=== PATIENT | male | born 1955 | race Caucasian/White ===

== ENCOUNTER 2020-08-12 01:47 | Inpatient (IN) | payer MEDICARE, OTHER ==
[~2020-08-12] VITALS: Ht 170.2 cm; Wt 80.7 kg
--- NOTE | 2020-08-12 01:52 | NUR ---
PT AAOX4. BIBEMS C/O WORSENING SOB, GENERALIZED WEAKNESS X3 WEEKS. NOTED PT COVERED IN FECES. UPON ASSESSMENT STATED HE HAS BEEN HAVING DIARRHEA X3 DAYS. PT PLACED IN BED 8 ON MONITOR AND PULSE OX. PT NOTED MD BERNY AT BEDSIDE FOR EVAL. AWAITING ORDERS.
[2020-08-12] MEDS ORDERED: ACETAMINOPHEN 325 MG TABLET ONE ×2 (02:25→20:52)
[2020-08-12] MEDS ORDERED: ONDANSETRON HCL/PF 4 MG/2 ML VIAL ONE (02:25)
[2020-08-12] MEDS ORDERED: ONDANSETRON HCL/PF 4 MG/2 ML VIAL IVP ONE (02:30)
[2020-08-12] MEDS ORDERED: ACETAMINOPHEN 325 MG TABLET PO ONE (02:30)
[2020-08-12] MEDS ORDERED: IV NS 0.9% 1,000 ML BAG IV ONE (02:30)
--- NOTE | 2020-08-12 02:30 | NUR ---
BRIAID SWABBED, SENT TO LAB.
[2020-08-12 02:39] LABS: BASOPHILS % (AUTO) 0.2 % (0.0-2.0); EOSINOPHILS % (AUTO) 0.4 % (0.0-6.0); HEMATOCRIT 38 % (39-51); HEMOGLOBIN 12.7 g/dL (13.5-17.5); LYMPHOCYTES # (AUTO) 0.5 /CMM (0.8-4.8); LYMPHOCYTES % (AUTO) 3.7 % (20.0-44.0); MEAN CORPUSCULAR HGB CONC 34 g/dl (31.0-36.0); MEAN CORPUSCULAR VOLUME 92 fL (80-96); MONOCYTES # (AUTO) 0.2 /CMM (0.1-1.30); MONOCYTES % (AUTO) 1.6 % (2.0-12.0); NEUTROPHILS # (AUTO) 11.6 /CMM (1.8-8.9); NEUTROPHILS % (AUTO) 94.1 % (43.0-81.0); PLATELET COUNT (AUTO) 259 /CMM (150-450); RED BLOOD CELL COUNT(AUTO) 4.08 MIL/uL (4.5-6.0); WHITE BLOOD COUNT (AUTO) 12.3 K/uL (4.3-11.0)
[2020-08-12 02:48] LABS: CALCIUM, SERUM 8.4 mg/dL (8.5-10.1); CARBON DIOXIDE 28 mmol/L (21-32); CHLORIDE 96 mmol/L (98-107); CREATININE 1.4 mg/dL (0.6-1.3); GLUCOSE 146 mg/dL (74-106); POTASSIUM 3.8 mmol/L (3.5-5.1); SODIUM SERUM 133 mmol/L (136-145); UREA NITROGEN, BLOOD 37 mg/dL (7-18)
--- NOTE | 2020-08-12 02:56 | NUR ---
Call from lab, rapid covid positive,
[2020-08-12 03:01] LABS: ALANINE AMINOTRANSFERASE 63 U/L (12-78); ALBUMIN 2.2 g/dL (3.4-5.0); ALKALINE PHOSPHATASE 138 U/L (46-116); ASPARTATE AMINOTRANSFERASE 59 U/L (15-37); B-TYPE NATRIURETIC PEPTIDE 1265 PG/ML (0-125); BILIRUBIN,DIRECT 0.4 mg/dL (0.0-0.2); BILIRUBIN,TOTAL 0.9 mg/dL (0.2-1.0); TOTAL PROTEIN, SERUM 7.5 g/dL (6.4-8.2)
[2020-08-12] MEDS ORDERED: AZITHROMYCIN 500 MG in IV D5W 250 ML IV ONE (03:30)
[2020-08-12] MEDS ORDERED: CEFTRIAXONE 1GM BAG (ER ONLY) 1 GM/50 ML PIGGYBACK IV ONE (03:30)
[2020-08-12] MEDS ORDERED: CEFTRIAXONE 1GM BAG (ER ONLY) 50 ML IV ONE (03:53)
[2020-08-12] MEDS ORDERED: AZITHROMYCIN 500 MG VIAL ONE (03:54)
[2020-08-12] MEDS ORDERED: ALBUTEROL SULFATE 8 GM HFA.AER.AD IH PRN (05:30)
[2020-08-12] MEDS ORDERED: ONDANSETRON HCL/PF 4 MG/2 ML VIAL IVP PRN (05:30)
--- NOTE | 2020-08-12 07:05 | NUR ---
PT PLACED ON NON REBREATHER DUE TO PT SAT 88% ON SIMPLE MASK.
--- NOTE | 2020-08-12 07:16 | NUR ---
ENDORSEMENT RECEIVED FROM YULY MORATAYA FOR NEGRO
--- NOTE | 2020-08-12 09:01 | NUR ---
PATIENT IN BED, ASLEEP, EASILY AROUSABLE BY VOICE. HOOKED TO MONITOR, VSS. WILL CONTINUE TO MONITOR ACCORDINGLY
[2020-08-12] MEDS: DEXAMETHASONE SOD PHOSPHATE 4 MG/ML VIAL IV SCH (10:08)
--- NOTE | 2020-08-12 11:05 | NUR ---
PATIENT IN BED, ASLEEP, EASILY AROUSABLE BY VOICE. HOOKED TO MONITOR, VSS. WILL CONTINUE TO MONITOR ACCORDINGLY
[2020-08-12 11:46] LABS: C-REACTIVE PROTEIN 38.2 mg/dL (0.0-0.9)
--- NOTE | 2020-08-12 13:06 | NUR ---
PATIENT IN BED, ASLEEP, EASILY AROUSABLE BY VOICE. HOOKED TO MONITOR, VSS. WILL CONTINUE TO MONITOR ACCORDINGLY
[2020-08-12] MEDS ORDERED: REMDESIVIR (CHARGED) 200 MG, *LOADING DOSE 1 EA in IV NS 0.9% 210 ML IV ONE (14:00)
--- NOTE | 2020-08-12 15:01 | NUR ---
PATIENT IN BED, ASLEEP, EASILY AROUSABLE BY VOICE. HOOKED TO MONITOR, VSS. WILL CONTINUE TO MONITOR ACCORDINGLY
--- NOTE | 2020-08-12 17:06 | NUR ---
PATIENT IN BED, ASLEEP, EASILY AROUSABLE BY VOICE. HOOKED TO MONITOR, VSS. WILL CONTINUE TO MONITOR ACCORDINGLY
[2020-08-12] MEDS: IPRATROPIUM/ALBUTEROL INHALER IH SCH (18:00)
--- NOTE | 2020-08-12 18:16 | NUR ---
PT RESTING COMFORTABLY. VSS.
--- NOTE | 2020-08-12 19:19 | NUR ---
PATIENT IN BED, ASLEEP, EASILY AROUSABLE BY VOICE. HOOKED TO MONITOR, VSS. WILL CONTINUE TO MONITOR ACCORDINGLY
--- NOTE | 2020-08-12 19:34 | NUR ---
ENDORSEMENT GIVEN TO YULY MORATAYA FOR NEGRO
[2020-08-12] MEDS: ACETAMINOPHEN 325 MG TABLET PO PRN (20:53)
--- NOTE | 2020-08-12 20:53 | NUR ---
TEMP 101.9, GIVEN PO TYLENOL 650
--- NOTE | 2020-08-12 20:56 | NUR ---
CALLED TO GIVE REPORT, UNAVAILABLE.
--- NOTE | 2020-08-12 21:05 | NUR ---
CALLED TO GIVE REPORT, NURSE WILL CALL BACK.
--- NOTE | 2020-08-12 21:29 | NUR ---
RECHECKED TEMP 98.8
--- NOTE | 2020-08-12 21:42 | NUR ---
REPORT GIVEN TO JONATHAN MORATAYA FOR NEGRO
--- NOTE | 2020-08-12 22:19 | NUR ---
PT TRANSFERED PER ACLS PROTOCOL
--- NOTE | 2020-08-12 22:20 | NUR ---
RECEIVED PT FROM ER VIA [facility] A/O X3 ABLE TO VERBALIZED NEEDS, ON O2 VIA NON REBREATHER 15L WITH SPO2 96% NO SIGN AND SYMPTOMS OF SOB AT THIS MOMENT, SAFELY TRANSFER TO BED FROM [facility] HOOKED TO TELE MONITOR WITH READING SINUS TACHY 100'S WITH PVC CONTROLLED, V/S CHECKED AND RECORDED, HEAD TO TOE ASSESSMENT DONE INITIAL ASSESSMENT DONE, NURSING SWALLOW TEST DONE PT IS ABLE TO DRINK WATER, PUT ON DROPLET ISOLATION FOR COVID (+) RAPID, PCR PENDING, SAFETY MEASURE INITIATED BED ON LOWEST POSITION AND LOCKED SIDE RAILS UPX2 CALL LIGHT WITHIN REACH WILL CONT TO MONITOR THE PT
[2020-08-12 22:33] VITALS: BP 97/65
[2020-08-12] MEDS: ENOXAPARIN SODIUM 40 MG/0.4 ML DISP.SYRIN SQ SCH (22:47)
[2020-08-13] VITALS: BP 120/68
[2020-08-13 04:00] VITALS: BP 112/68
[2020-08-13] MEDS: IPRATROPIUM/ALBUTEROL INHALER IH SCH ×4 (05:06→17:24)
[2020-08-13] MEDS: CEFTRIAXONE 1 G in IV D5W 50 ML IV SCH (05:06)
[2020-08-13] MEDS: AZITHROMYCIN 250 MG TABLET PO SCH (05:06)
[2020-08-13 05:38] LABS: OCCULT BLOOD STOOL POSITIVE (NEGATIVE)
[2020-08-13 06:55] LABS: BASOPHILS % (AUTO) 0.1 % (0.0-2.0); EOSINOPHILS % (AUTO) 0.1 % (0.0-6.0); HEMATOCRIT 33 % (39-51); HEMOGLOBIN 10.8 g/dL (13.5-17.5); LYMPHOCYTES # (AUTO) 0.4 /CMM (0.8-4.8); LYMPHOCYTES % (AUTO) 3.8 % (20.0-44.0); MEAN CORPUSCULAR HGB CONC 33 g/dl (31.0-36.0); MEAN CORPUSCULAR VOLUME 92 fL (80-96); MONOCYTES # (AUTO) 0.2 /CMM (0.1-1.30); MONOCYTES % (AUTO) 2.2 % (2.0-12.0); NEUTROPHILS # (AUTO) 9.4 /CMM (1.8-8.9); NEUTROPHILS % (AUTO) 93.8 % (43.0-81.0); PLATELET COUNT (AUTO) 214 /CMM (150-450); RED BLOOD CELL COUNT(AUTO) 3.55 MIL/uL (4.5-6.0)
--- NOTE | 2020-08-13 07:30 | NUR ---
RN OPENING NOTE PATIENT CURRENTLY IN BED SLEEPING, EASY TO WAKEN. ALERT/ORIENTED X3, ABLE TO MAKE NEEDS KNOWN. PATIENT CURRENTLY ON NON REBREATHER @ 15L OXYGEN THERAPY. OXYGEN SATURATION 93%, NO S/S OF DISTRESS AT THIS TIME, NO PAIN REPORTED. TELE MONITOR READING SHOWS SINUS TACHY WITH PVC/ R FA 20G IV INTACT AND PATENT, NO S/S OF INFECTION AT THIS TIME. ALL SAFETY MEASURES IN PLACE PER HOSPITAL POLICY. BED LOCKED IN LOWEST POSITION, CALL LIGHT WITHIN REACH. WILL CONTINUE TO MONITOR AND PROVIDE CARE.
--- NOTE | 2020-08-13 07:30 | NUR ---
PT ON BED ASLEEP EASY TO WAKE UP STILL ON NON REBREATHER 15L SPO2 @ 90-91 NO PAIN NOTED, ALL NEEDS ATTENDED TELE MONITOR READS SINUS TACHY WITH PVC, DROPLET ISOLATION FOR COVID MAINTAIN BED ON LOWEST POSITION AND LOCKED SIDE RAILS UP CALL LIGHT WITHIN REACH WILL ENDORSE TO AM SHIFT NURSE
[2020-08-13 07:51] LABS: ALBUMIN 1.8 g/dL (3.4-5.0); BILIRUBIN,TOTAL 0.3 mg/dL (0.2-1.0); CALCIUM, SERUM 7.8 mg/dL (8.5-10.1); CREATININE 1.4 mg/dL (0.6-1.3); MAGNESIUM 2.5 mg/dL (1.8-2.4); POTASSIUM 3.7 mmol/L (3.5-5.1); TOTAL PROTEIN, SERUM 6.7 g/dL (6.4-8.2)
[2020-08-13 08:00] VITALS: BP 109/57
[2020-08-13 08:34] LABS: THYROID STIMULATING HORMONE 0.363 uIU/mL (0.358-3.74)
[2020-08-13] MEDS: DEXAMETHASONE SOD PHOSPHATE 4 MG/ML VIAL IV SCH (09:11)
[2020-08-13 12:00] VITALS: BP 116/63
[2020-08-13] MEDS: REMDESIVIR (CHARGED) 100 MG in IV NS 0.9% 230 ML IV SCH (14:19)
[2020-08-13 16:00] VITALS: BP 103/59
--- NOTE | 2020-08-13 18:52 | NUR ---
RN CLOSING NOTE PATIENT CURRENTLY IN BED RESTING. ALERT/ORIENTED X3, ABLE TO MAKE NEEDS KNOWN. PATIENT CURRENTLY ON NON REBREATHER @ 15L OXYGEN THERAPY. OXYGEN SATURATION 91%, NO S/S OF DISTRESS AT THIS TIME, NO PAIN REPORTED. TELE MONITOR READING SHOWS SINUS TACHY WITH PVC. R FA 20G IV INTACT AND PATENT, NO S/S OF INFECTION AT THIS TIME. ALL SAFETY MEASURES IN PLACE PER HOSPITAL POLICY. BED LOCKED IN LOWEST POSITION, CALL LIGHT WITHIN REACH. WILL ENDORSE TO MANUFACTURER'S REPRESENTATIVE NURSE FOR NEGRO.
--- NOTE | 2020-08-13 19:30 | NUR ---
RN OPENING NOTE RECEIVED PATIENT IN BED RESTING ALERT ORIENTED X3 ABLE TO MAKE NEEDS KNOWN,ON NON BREATHER MASK 15L/MIN BREATHING LABORED O2:92% NON COMPLIANCES WITH MASK KEEP TAKE OUT MASK,IV SITE IS ON RIGHT FOREARM #20 INTACT PATENT HEAD OF BED ELEVATED,CALL LIGHT WITHIN REACH,BED ALARM IS ON,BED IS IN LOW POSITION AND LOCKED CONTINUE O MONITOR
[2020-08-13 20:00] VITALS: BP 124/68
[2020-08-13] MEDS: ENOXAPARIN SODIUM 40 MG/0.4 ML DISP.SYRIN SQ SCH (20:13)
[2020-08-14] VITALS (24 sets, daily range): BP systolic 124–147; BP diastolic 48–86
--- NOTE | 2020-08-14 01:00 | NUR ---
RN NOTE RECEIVED LAB RESULTS PATIENT IS COVID POSITIVE CONTINUE TO MONITOR
--- NOTE | 2020-08-14 05:00 | NUR ---
RN NOTE STARTED A NEW IV LINE ON RIGHT FOREARM #20 WITH GOOD BLOOD RETURN AND LEFT HAND #20,CONTINUE TO MONITOR.
[2020-08-14] MEDS: CEFTRIAXONE 1 G in IV D5W 50 ML IV SCH (05:14)
[2020-08-14] MEDS: AZITHROMYCIN 250 MG TABLET PO SCH (05:35)
--- NOTE | 2020-08-14 06:42 | NUR ---
RN CLOSING NOTE PATIENT REMAINS ON ALERT ORIENTED X3 VERBALLY RESPONSIVE NO 15L OXYGEN VIA NON REBREATHER MASK,O2:94% IV SITE IS ON RIGHT FOREARM INTACT PATENT,AND LEFT HAND PATEN FLUSHED,PATIENT STILL IS NON COMPLIANCE WITH MASK,ALL DUE MEDS GIVEN MD ORDERED,KEPT CLEAN AND DRY ALL THE TIME,KEPT COMFORTABLE,KEPT CALL LIGHT WITHIN REACH,ALL NEEDS MET,ENDORSE NEXT COMING SHIFT FOR CONTINUATION OF CARE
--- NOTE | 2020-08-14 07:30 | NUR ---
RN OPENING NOTE PATIENT REMAINS ON ALERT ORIENTED X0, ON 15L OXYGEN VIA NON REBREATHER MASK, O2: 89%. RT NOTIFIED. IV SITE IS ON RIGHT FOREARM INTACT PATENT, AND LEFT HAND PATEN FLUSHED,PATIENT STILL IS NON COMPLIANCE WITH MASK, ALL SAFETY MEASURES IN PLACE PER HOSPITAL POLICY. CALL LIGHT WITHIN REACH. WILL CONTINUE TO MONITOR AND PROVIDE CARE.
[2020-08-14 07:40] LABS: BASOPHILS % (AUTO) 0.1 % (0.0-2.0); EOSINOPHILS % (AUTO) 0.1 % (0.0-6.0); HEMATOCRIT 32 % (39-51); HEMOGLOBIN 10.8 g/dL (13.5-17.5); LYMPHOCYTES # (AUTO) 0.3 /CMM (0.8-4.8); LYMPHOCYTES % (AUTO) 3.3 % (20.0-44.0); MEAN CORPUSCULAR HGB CONC 34 g/dl (31.0-36.0); MEAN CORPUSCULAR VOLUME 92 fL (80-96); MONOCYTES # (AUTO) 0.2 /CMM (0.1-1.30); NEUTROPHILS # (AUTO) 8.1 /CMM (1.8-8.9); NEUTROPHILS % (AUTO) 94.5 % (43.0-81.0); PLATELET COUNT (AUTO) 227 /CMM (150-450); RED BLOOD CELL COUNT(AUTO) 3.49 MIL/uL (4.5-6.0); WHITE BLOOD COUNT (AUTO) 8.6 K/uL (4.3-11.0)
[2020-08-14 08:05] LABS: ALBUMIN 1.8 g/dL (3.4-5.0); BILIRUBIN,DIRECT 0.2 mg/dL (0.0-0.2); BILIRUBIN,TOTAL 0.3 mg/dL (0.2-1.0); POTASSIUM 4.2 mmol/L (3.5-5.1); TOTAL PROTEIN, SERUM 6.7 g/dL (6.4-8.2)
[2020-08-14] MEDS: DEXAMETHASONE SOD PHOSPHATE 4 MG/ML VIAL IV SCH (10:20)
[2020-08-14 10:24] LABS: C-REACTIVE PROTEIN 25.4 mg/dL (0.0-0.9)
[2020-08-14 11:14] LABS: ABG BASE EXCESS 2.5 mmol/L; ABG PCO2 40.1 mmHg (35.0-45.0); ABG PH 7.442 (7.350-7.450); ABG PO2 105.9 mmHg (75.0-100.0); COHb 0.1 % (0.5-1.5); MetHb 0.3 % (0.0-1.5); O2Hb 97.6 % (94.0-97.0); SITE, ABG Left Brachial; VENT MODE, BG hfnc 60L 100% +15L nrb
[2020-08-14] MEDS: IPRATROPIUM/ALBUTEROL INHALER IH SCH ×2 (12:00→18:00)
--- NOTE | 2020-08-14 12:30 | NUR ---
PATIENT SATURATING ON 15L NON REBREATER. MD AND RT NOTIFIED. HIGH FLOW OXYGEN STARTED BY RT. ORDER FOR STAT ABG RECEIVED AND ORDER TO TRANSFER TO ICU.
--- NOTE | 2020-08-14 13:00 | NUR ---
REPORT GIVEN TO RAFIA BREWER IN ICU FOR TRANSFER OF CARE.
--- NOTE | 2020-08-14 13:00 | NUR ---
RN NOTES RECEIVIED PT ON BED IN ROOM 258 ICU STAUS , PT IS ALERT/ FOLLOWS COMMANDS, SPEECH NOT CLEAR, ON HIGH FLOW O2 AT 100% AND NONREBREATHING MASK AT 15L , O2 SAT LOW 90'S , ON TELE , SR, HR IN 80'S , L FA IV AND L HAND IV SITES CLEAN, DRY AND INTACT, SR UP x3, CALL LIGHT WITHIN EASY REACH, BED LOCKED AND IN LOWEST POSITION, CONTINUE TO MONITOR .
[2020-08-14] MEDS: REMDESIVIR (CHARGED) 100 MG in IV NS 0.9% 230 ML IV SCH (15:04)
[2020-08-14] MEDS: ENOXAPARIN SODIUM 40 MG/0.4 ML DISP.SYRIN SQ SCH (16:30)
--- NOTE | 2020-08-14 18:00 | NUR ---
RN NOTES PT REMAINS IN HIGH FLOW O2 AT 100% AND NONREBREATHING MASK , O2 SAT WNL, SR UP x3, CALL LIGHT WITHIN EASY REACH , WILL ENDORSE TO BLOGS MANAGER NURSE FOR CONTINUITY OF CARE .
[2020-08-15] VITALS (44 sets, daily range): BP systolic 108–168; BP diastolic 51–119
[2020-08-15] MEDS: CEFTRIAXONE 1 G in IV D5W 50 ML IV SCH (05:00)
[2020-08-15] MEDS: AZITHROMYCIN 250 MG TABLET PO SCH (05:01)
[2020-08-15] MEDS: IPRATROPIUM/ALBUTEROL INHALER IH SCH ×4 (05:01→17:35)
[2020-08-15 05:12] LABS: BASOPHILS % (AUTO) 0.1 % (0.0-2.0); EOSINOPHILS % (AUTO) 0.3 % (0.0-6.0); HEMATOCRIT 34 % (39-51); HEMOGLOBIN 11.3 g/dL (13.5-17.5); LYMPHOCYTES # (AUTO) 0.3 /CMM (0.8-4.8); LYMPHOCYTES % (AUTO) 4.5 % (20.0-44.0); MEAN CORPUSCULAR HGB CONC 33 g/dl (31.0-36.0); MEAN CORPUSCULAR VOLUME 92 fL (80-96); MONOCYTES # (AUTO) 0.2 /CMM (0.1-1.30); MONOCYTES % (AUTO) 2.5 % (2.0-12.0); NEUTROPHILS % (AUTO) 92.6 % (43.0-81.0); PLATELET COUNT (AUTO) 233 /CMM (150-450); RED BLOOD CELL COUNT(AUTO) 3.67 MIL/uL (4.5-6.0); WHITE BLOOD COUNT (AUTO) 7.6 K/uL (4.3-11.0)
[2020-08-15 05:28] LABS: ALBUMIN 1.9 g/dL (3.4-5.0); BILIRUBIN,DIRECT 0.2 mg/dL (0.0-0.2); BILIRUBIN,TOTAL 0.4 mg/dL (0.2-1.0); CALCIUM, SERUM 8.3 mg/dL (8.5-10.1); POTASSIUM 4.5 mmol/L (3.5-5.1); TOTAL PROTEIN, SERUM 6.9 g/dL (6.4-8.2)
--- NOTE | 2020-08-15 06:29 | NUR ---
POWER CHECKER PT RCD ONE UNIT CONVALESCENT PLASMA; REMAINED ON HI FLOW 60 L 100% WELL NRB. PT SENSITIVE TO TOUCH; STARTS YELLING WHEN HE IS BEING REPOSITIONED BUT WONT VERBALIZE WHERE HIS PAIN IS. PT HAD ONE EPISODE OF REMOVING ALL OXYGEN; EDUCATED PT ON THE NEED FOR COMPLIANCE HOWEVER PT REMAINS CONFUSED.
--- NOTE | 2020-08-15 07:05 | NUR ---
RN NOTES RECEIVED PT ON HIGH FLOW , AND NONREBREATHING MASK , O2 SAT WNL, CONFUSED, FOLLOWS SIMPLE COMMAND, ON TELE SR HR IN 90'S , TODD DRINING TO GRAVITY, SR UP x3, CALL LIGHT WITHIN EASY REACH, BED LOCKED AND IN LOWEST POSITION, CONTINUE TO MONITOR .
[2020-08-15] MEDS: DEXAMETHASONE SOD PHOSPHATE 4 MG/ML VIAL IV SCH (08:34)
[2020-08-15] MEDS: ENOXAPARIN SODIUM 40 MG/0.4 ML DISP.SYRIN SQ SCH ×2 (08:35→23:04)
[2020-08-15] MEDS: ACETAMINOPHEN 325 MG TABLET PO PRN (08:36)
[2020-08-15] MEDS ORDERED: DEXTROSE 50%-WATER 50 ML DISP.SYRIN IV PRN (11:00)
[2020-08-15] MEDS: BLOOD SUGAR DIAGNOSTIC 1 EACH STRIP IN SCH ×3 (11:42→22:00)
[2020-08-15] MEDS: REMDESIVIR (CHARGED) 100 MG in IV NS 0.9% 230 ML IV SCH (14:38)
--- NOTE | 2020-08-15 18:00 | NUR ---
RN NOTES LA=2.2, MORRIS NOTIFED ,NEW ORDER GIVEN
[2020-08-15] MEDS ORDERED: IV NS 0.9% 1,000 ML IV ONE (19:00)
--- NOTE | 2020-08-15 19:00 | NUR ---
RN NOTES PT STILL ON NONREBREATHING AND HIGH FLOW O2 , O2 SAT WNL. WILL ENDORSE TO MAINTENANCE OPERATOR NURSE FOR CONTINUITY OF CARE .
[2020-08-15] MEDS ORDERED: IV NS 0.9% 500 ML IV ONE (19:30)
--- NOTE | 2020-08-15 20:00 | NUR ---
agricultural produce packer. received the pt rest on the bed. awake, confused, does not follow commands. court recording monitor showing nsr, iv rt hand 22g. hob elevated.oxygen high flow 60%, nonrebreather 100%. fc patent. hob elevated, aissatou soft wrist restraint checked andreleased, no injury or redness noted, will continue to monitor vitals.
[2020-08-16] VITALS (45 sets, daily range): BP systolic 130–186; BP diastolic 62–124
[2020-08-16 04:09] LABS: BASOPHILS % (AUTO) 0.3 % (0.0-2.0); EOSINOPHILS % (AUTO) 0.1 % (0.0-6.0); HEMATOCRIT 35 % (39-51); HEMOGLOBIN 11.7 g/dL (13.5-17.5); LYMPHOCYTES # (AUTO) 0.4 /CMM (0.8-4.8); LYMPHOCYTES % (AUTO) 3.6 % (20.0-44.0); MEAN CORPUSCULAR HGB CONC 33 g/dl (31.0-36.0); MEAN CORPUSCULAR VOLUME 93 fL (80-96); MONOCYTES # (AUTO) 0.3 /CMM (0.1-1.30); MONOCYTES % (AUTO) 2.4 % (2.0-12.0); NEUTROPHILS # (AUTO) 9.9 /CMM (1.8-8.9); NEUTROPHILS % (AUTO) 93.6 % (43.0-81.0); PLATELET COUNT (AUTO) 210 /CMM (150-450); RED BLOOD CELL COUNT(AUTO) 3.79 MIL/uL (4.5-6.0); WHITE BLOOD COUNT (AUTO) 10.5 K/uL (4.3-11.0)
[2020-08-16 04:48] LABS: ALBUMIN 1.9 g/dL (3.4-5.0); BILIRUBIN,DIRECT 0.2 mg/dL (0.0-0.2); BILIRUBIN,TOTAL 0.4 mg/dL (0.2-1.0); TOTAL PROTEIN, SERUM 7.3 g/dL (6.4-8.2)
--- NOTE | 2020-08-16 05:05 | NUR ---
floriculture teacher, am care done. aissatou soft wrist restraint checked and released. no injury or redness noted. broadcast systems engineer showing nsr, iv lt hand ns 100ml/h. hob elevated, fc patent, will continue to monitor vitals
[2020-08-16 05:17] LABS: COLOR,URINE YELLOW (YELLOW)
[2020-08-16 05:18] LABS: BILIRUBIN,URINE NEGATIVE (NEGATIVE); LEUKOCYTE ESTERASE ,URINE NEGATIVE (NEGATIVE); NITRITE, URINE NEGATIVE (NEGATIVE); PROTEIN,URINE 30 mg/dl (NEGATIVE); UGLUCOSE NEGATIVE (NEGATIVE); UROBILINOGEN,URINE 0.2 EU/dL (0.2)
[2020-08-16 05:21] LABS: BACTERIA,URINE None seen /HPF (None Seen); SQUAMOUS EPITHELIAL CELL,UR Few /HPF (None Seen); WBC,URINE 81-100 /HPF (0-3)
[2020-08-16] MEDS: CEFTRIAXONE 1 G in IV D5W 50 ML IV SCH (05:25)
[2020-08-16 05:45] LABS: CALCIUM, SERUM 8.4 mg/dL (8.5-10.1); CREATININE 0.9 mg/dL (0.6-1.3); PHOSPHORUS 2.9 mg/dL (2.5-4.9); POTASSIUM 4.5 mmol/L (3.5-5.1)
[2020-08-16] MEDS: AZITHROMYCIN 250 MG TABLET PO SCH (05:45)
[2020-08-16] MEDS: IPRATROPIUM/ALBUTEROL INHALER IH SCH ×3 (06:00→18:00)
--- NOTE | 2020-08-16 07:30 | NUR ---
RN OPENING NOTES Patient present in bed, confused, on High Flow NC, tolerating settings well, SPO2 is 99%, at this time, restless, on soft wrist restrains, trying to remove NC and Newberry cath, ST on tele-monitor 101, Newberry cath in place draining yellow urine by gravity, IV line on L FA G22. intact, patent and intact, Monitor checked, working properly, bed is locked in lowest position, HOB elevated, call light in reach, will cont to monitor closely
[2020-08-16] MEDS: BLOOD SUGAR DIAGNOSTIC 1 EACH STRIP IN SCH ×4 (08:06→21:24)
[2020-08-16] MEDS: DEXAMETHASONE SOD PHOSPHATE 4 MG/ML VIAL IV SCH (08:10)
[2020-08-16] MEDS: ENOXAPARIN SODIUM 40 MG/0.4 ML DISP.SYRIN SQ SCH ×2 (08:12→20:14)
[2020-08-16 09:30] LABS: ABG BASE EXCESS 3.1 mmol/L; ABG OXYGEN SATURATION 89.9 % (92.0-98.5); ABG PCO2 39.4 mmHg (35.0-45.0); ABG PH 7.456 (7.350-7.450); ABG PO2 56.2 mmHg (75.0-100.0); AaDO2 617.4 mmHg; COHb 0.3 % (0.5-1.5); MetHb 0.1 % (0.0-1.5); O2Hb 89.5 % (94.0-97.0); SITE, ABG Right Radial; VENT MODE, BG HFNC 60L 100%
[2020-08-16] MEDS: INSULIN REGULAR, HUMAN 100 UNIT/ML 3 ML VIAL SQ PRN ×2 (10:49→21:25)
--- NOTE | 2020-08-16 12:10 | NUR ---
WILL HOLD INSULIN DUE NPO STATUS, BLOOD SUGAR LEVEL IS 132 AT THIS TIME
--- NOTE | 2020-08-16 12:30 | NUR ---
Noted high BP, hospitalist is aware
--- NOTE | 2020-08-16 12:41 | NUR ---
RT NOTE: PATIENT AGITATED AND REMOVING OXYGEN. PATIENT WAS PLACED BACK ON NRB MASK DUE TO LOW OXYGEN SATURATION. NURSE AWARE. SP02=91% ON 100% HFNC @60LPM AND NRB MASK AT THIS TIME. WILL CONTINUE TO MONITOR.
--- NOTE | 2020-08-16 13:25 | NUR ---
Report given to RAFIA Purdy for NEGRO
[2020-08-16] MEDS ORDERED: hydrALAZINE HCL IV 20 MG VIAL IV PRN (13:30)
[2020-08-16] MEDS: ENALAPRILAT DIHYD. (2.5MG/ML) 1.25 MG/ML VIAL IV PRN ×2 (14:07→21:25)
[2020-08-16] MEDS: REMDESIVIR (CHARGED) 100 MG in IV NS 0.9% 230 ML IV SCH (14:27)
--- NOTE | 2020-08-16 19:30 | NUR ---
RN NOTES RECEIVED PATIENT IN BED CONFUSED UNABLE TO FOLLOW COMMANDS. ON HIGH FLOW 60L NON REBREATHER 100%. HOB ELEVATED. IV SITES INTACT PATENT FLUSHES WELL. TELE MONITOR ST. BILATERAL SOFT WRIST RESTRAINS IN PLACE, RELEASED AND CHECKED FOR SKIN REDNESS AND CIRCULATION. NO COMPLICATION NOTED. F/C INTACT YELLOW URINE DRAINING VIA GRAVITY. SAFETY MEASURES IN PLACE, SIDE RAILS UP CALL LIGHT WITHIN REACH. WILL CONT TO MONITOR.
[2020-08-17] VITALS (59 sets, daily range): BP systolic 57–194; BP diastolic 26–136
[2020-08-17 04:50] LABS: ALBUMIN 1.9 g/dL (3.4-5.0); BILIRUBIN,DIRECT 0.1 mg/dL (0.0-0.2); BILIRUBIN,TOTAL 0.4 mg/dL (0.2-1.0); CALCIUM, SERUM 8.9 mg/dL (8.5-10.1); CREATININE 0.9 mg/dL (0.6-1.3); MAGNESIUM 2.5 mg/dL (1.8-2.4); PHOSPHORUS 2.7 mg/dL (2.5-4.9); POTASSIUM 4.3 mmol/L (3.5-5.1); TOTAL PROTEIN, SERUM 7.1 g/dL (6.4-8.2)
[2020-08-17 04:52] LABS: BASOPHILS % (AUTO) 0.3 % (0.0-2.0); EOSINOPHILS % (AUTO) 0.4 % (0.0-6.0); HEMATOCRIT 36 % (39-51); HEMOGLOBIN 11.8 g/dL (13.5-17.5); LYMPHOCYTES # (AUTO) 0.5 /CMM (0.8-4.8); LYMPHOCYTES % (AUTO) 3.7 % (20.0-44.0); MEAN CORPUSCULAR HGB CONC 33 g/dl (31.0-36.0); MEAN CORPUSCULAR VOLUME 92 fL (80-96); MONOCYTES # (AUTO) 0.4 /CMM (0.1-1.30); MONOCYTES % (AUTO) 3.2 % (2.0-12.0); NEUTROPHILS # (AUTO) 11.6 /CMM (1.8-8.9); NEUTROPHILS % (AUTO) 92.4 % (43.0-81.0); PLATELET COUNT (AUTO) 235 /CMM (150-450); WHITE BLOOD COUNT (AUTO) 12.6 K/uL (4.3-11.0)
[2020-08-17] MEDS: ENALAPRILAT DIHYD. (2.5MG/ML) 1.25 MG/ML VIAL IV PRN (05:07)
[2020-08-17 05:32] LABS: ABG BASE EXCESS 2.4 mmol/L; ABG OXYGEN SATURATION 83.3 % (92.0-98.5); ABG PCO2 37.8 mmHg (35.0-45.0); ABG PH 7.458 (7.350-7.450); ABG PO2 46.7 mmHg (75.0-100.0); AaDO2 628.5 mmHg; COHb 0.4 % (0.5-1.5); MetHb 0.1 % (0.0-1.5); O2Hb 82.9 % (94.0-97.0); SITE, ABG Left Radial; VENT MODE, BG HFNC 60L 100% 15L NRB
--- NOTE | 2020-08-17 05:46 | NUR ---
RECEIVED CALL FROM RADIOLOGY TALKED TO DR FREEMAN ABOUT PT HAS 30% OF PNEUMOTHORAX ON RT SIDE AND LESS THAN 10% ON LT SIDE LABS RELAYED TO LES OTT NEW ORDER RECEIVED FOR CHEST TUBE AND FOR INTUBATION, ORDER NOTED AND CARRIED OUT RT AND ER DR. AUSTIN.
[2020-08-17] MEDS: IPRATROPIUM/ALBUTEROL INHALER IH SCH ×4 (06:00→17:59)
[2020-08-17] MEDS: AZITHROMYCIN 250 MG TABLET PO SCH (06:00)
[2020-08-17] MEDS: CEFTRIAXONE 1 G in IV D5W 50 ML IV SCH (06:27)
[2020-08-17] MEDS ORDERED: PROPOFOL 200 MG/20 ML VIAL IV ONE (06:45)
[2020-08-17] MEDS: PROPOFOL 100 ML IV PRN ×5 (07:10→22:08)
--- NOTE | 2020-08-17 07:12 | NUR ---
RT NOTE PT REC'D ON HFNC 100% + NRB MASK 15LPM. PT ORALLY INTUBATED VIA ETT SZ 8.0 SECURED @ 26 CM AT THE LIP LINE. COLOR CHANGE NOTED ON CO2 DETECTOR. BILATERAL BREATH SOUNDS NOTED. EQUAL CHEST RISE UPON VENTILATION. PT PLACED ON MECH VENT ON NOTED SETTINGS PER MD ORDERS. ABG TO BE TAKEN WITHIN 1 HR. WAITING ON CHEST X RAY. AMBU BAG BEDSIDE. VENT PLUGGED INTO RED OUTLET, ALARMS ARE SET AND AUDIBLE. WILL CONTINUE TO MONITOR CLOSELY. Addendum: 08/17/20 at 0716 by RUSS NUGENT RT Amended: Links added.
--- NOTE | 2020-08-17 07:16 | NUR ---
ETT PULLED OUT 2 CM PER MD ORDERS Addendum: 08/17/20 at 0716 by RUSS NUGENT RT Amended: Links added.
--- NOTE | 2020-08-17 07:30 | NUR ---
RECEIVED PATIENT IN BED. NO ACUTE DISTRESS NOTED. PATIENT S/P INTUBATION, STAT CHEST X-RAY ORDERED. PATIENT TOLERATING VENT SETTINGS, SATURATING AT 90%. PATIENT ON SOLID WASTE FACILITY SUPERVISOR, SINUS TACHYCARDIA NOTED. PATIENT TODD CATHETER IN PLACE, INTACT, DRAINING TO GRAVITY. PATIENT JESE MIDLINE IN PLACE, INTACT, PATENT. PATIENT NPO STATUS OBSERVED. PATIENT SEDATED ON PROPOFOL. PATIENT SAFETY MEASURES MAINTAINED. WILL CONTINUE TO MONITOR.
[2020-08-17] MEDS: DEXAMETHASONE SOD PHOSPHATE 4 MG/ML VIAL IV SCH (08:55)
[2020-08-17] MEDS: BLOOD SUGAR DIAGNOSTIC 1 EACH STRIP IN SCH ×4 (08:55→22:07)
[2020-08-17] MEDS: ENOXAPARIN SODIUM 40 MG/0.4 ML DISP.SYRIN SQ SCH ×2 (09:01→20:29)
[2020-08-17 17:17] LABS: ABG BASE EXCESS 1.3 mmol/L; ABG OXYGEN SATURATION 91.5 % (92.0-98.5); ABG PCO2 37.1 mmHg (35.0-45.0); ABG PH 7.449 (7.350-7.450); AaDO2 614.9 mmHg; COHb 0.5 % (0.5-1.5); MetHb 0.3 % (0.0-1.5); O2Hb 90.8 % (94.0-97.0); SITE, ABG Right Radial; VENT MODE, BG ac20 550 100% +0
--- NOTE | 2020-08-17 18:43 | NUR ---
PATIENT IN BED. NO ACUTE DISTRESS NOTED. PATIENT S/P INTUBATION. PATIENT TOLERATING VENT SETTINGS, SATURATING AT 90%. PATIENT ON BECK TENDER, NORMAL SINUS RHYTHM NOTED. PATIENT TODD CATHETER IN PLACE, INTACT, DRAINING TO GRAVITY. PATIENT JESE MIDLINE IN PLACE, INTACT, PATENT. PATIENT NPO STATUS OBSERVED. PATIENT SEDATED ON PROPOFOL. PATIENT SAFETY MEASURES MAINTAINED. WILL ENDORSE PLAN OF CARE TO ONCOMING SHIFT
--- NOTE | 2020-08-17 19:30 | NUR ---
RN NOTES RECEIVED PATIENT IN BED INTUBATED NO S/S OF ACUTE DISTRESS NOTED. VENT SETTING TOLERATING WELL ORDERED. CONTINUES ON DIPRIVAN TOLERATING WELL. TELE MONITOR READING SR. IV SITES INTACT PATENT FLUSHES WELL NO INFILTRATION NOTED. BILATERAL SOFT WRIST RESTRAINS IN PLACE RELEASED TO CHECK FOR SKIN BREAKDOWN AND CIRCULATION, F/C INTACT YELLOW URINE VIA GRAVITY. ALL SAFETY MEASURES IN PLACE, CALL LIGHT WITHIN REACH. WILL CONT TO MONITOR FOR NEGRO.
[2020-08-18] VITALS (50 sets, daily range): BP systolic 85–144; BP diastolic 50–85
[2020-08-18] MEDS: PROPOFOL 100 ML IV PRN ×5 (03:33→23:01)
--- NOTE | 2020-08-18 05:51 | NUR ---
RN NOTES PATIENT CONTINUES ON PROPOFOL TOLERATING WELL. NO CHANGES NOTED VENT SETTING TOLERATING WELL ORDERED. SUCTION PROVIDED, MOUTH CARE GIVEN. BED BATH GIVEN TOLERATED WELL, CHEST TUBE IN PLACE. KEPT CLEAN DRY AND COMFORTABLE. ALL SAFETY MEASURES IN PLACE. WILL CONT TO MONITOR.
[2020-08-18] MEDS: IPRATROPIUM/ALBUTEROL INHALER IH SCH ×4 (06:00→17:40)
[2020-08-18] MEDS: CEFTRIAXONE 1 G in IV D5W 50 ML IV SCH (06:01)
[2020-08-18 06:06] LABS: BASOPHILS % (AUTO) 0.4 % (0.0-2.0); EOSINOPHILS % (AUTO) 0.8 % (0.0-6.0); HEMATOCRIT 28 % (39-51); HEMOGLOBIN 9.1 g/dL (13.5-17.5); LYMPHOCYTES # (AUTO) 0.5 /CMM (0.8-4.8); LYMPHOCYTES % (AUTO) 4.8 % (20.0-44.0); MEAN CORPUSCULAR HGB CONC 33 g/dl (31.0-36.0); MEAN CORPUSCULAR VOLUME 95 fL (80-96); MONOCYTES # (AUTO) 0.3 /CMM (0.1-1.30); MONOCYTES % (AUTO) 2.5 % (2.0-12.0); NEUTROPHILS # (AUTO) 9.8 /CMM (1.8-8.9); NEUTROPHILS % (AUTO) 91.5 % (43.0-81.0); PLATELET COUNT (AUTO) 204 /CMM (150-450); RED BLOOD CELL COUNT(AUTO) 2.93 MIL/uL (4.5-6.0); WHITE BLOOD COUNT (AUTO) 10.7 K/uL (4.3-11.0)
[2020-08-18 06:15] LABS: BILIRUBIN,TOTAL 0.3 mg/dL (0.2-1.0); CALCIUM, SERUM 6.8 mg/dL (8.5-10.1); CREATININE 0.8 mg/dL (0.6-1.3); PHOSPHORUS 3.4 mg/dL (2.5-4.9); TOTAL PROTEIN, SERUM 5.4 g/dL (6.4-8.2)
[2020-08-18 06:22] LABS: MAGNESIUM 2.4 mg/dL (1.8-2.4)
[2020-08-18 06:45] LABS: ALBUMIN 1.3 g/dL (3.4-5.0)
[2020-08-18] MEDS: BLOOD SUGAR DIAGNOSTIC 1 EACH STRIP IN SCH ×4 (07:21→23:49)
[2020-08-18] MEDS: DEXAMETHASONE SOD PHOSPHATE 4 MG/ML VIAL IV SCH (08:32)
[2020-08-18] MEDS: AZITHROMYCIN 250 MG TABLET PO SCH (08:44)
[2020-08-18] MEDS: ENOXAPARIN SODIUM 40 MG/0.4 ML DISP.SYRIN SQ SCH ×2 (08:44→20:48)
[2020-08-18 09:47] LABS: ABG BASE EXCESS 0.4 mmol/L; ABG OXYGEN SATURATION 99.8 % (92.0-98.5); ABG PCO2 37.4 mmHg (35.0-45.0); ABG PH 7.434 (7.350-7.450); ABG PO2 374.7 mmHg (75.0-100.0); AaDO2 300.9 mmHg; COHb 0.8 % (0.5-1.5); PEEP,BG 0 cm H2O; SITE, ABG Right Radial; VT, ABG 550 mL
--- NOTE | 2020-08-18 11:49 | NUR ---
RN NOTES ENDORSED PATIENT TO AM NURSE ALL INFORMATION HAS BEEN DISCUSSED. PATIENT CONTINUES ON DIPRIVAN, SEDATION VACATION DONE PT WAS AGITATED. IV LINES ARE INTACT PATENT FLUSHING WELL. F/C INTACT DARNING WELL, ALL SAFETY MEASURES IN PLACE. ENDORSED TO AM NURSE FOR NEGRO.
[2020-08-18 12:39] LABS: ABG BASE EXCESS 1.8 mmol/L; ABG PCO2 38.4 mmHg (35.0-45.0); ABG PH 7.445 (7.350-7.450); ABG PO2 65.3 mmHg (75.0-100.0); AaDO2 609.3 mmHg; COHb 0.2 % (0.5-1.5); MetHb 0.1 % (0.0-1.5); O2Hb 92.7 % (94.0-97.0); PEEP,BG 0 cm H2O; SITE, ABG Right Brachial; VT, ABG 550 mL
--- NOTE | 2020-08-18 16:00 | NUR ---
TOLL TEST DESK WORKER NOTES RECEIVED PT FROM JT RN. PT IS SEDATED ON DIPRIVAN NO SOB OR DISCOMFORT NOTED AT THIS TIME. PT HAS LEFT NARE NG TUBE ASPIRATED NO RESIDUAL NOTED AUSCULTATED AND GURGLING SOUND NOTED. PT HAS PEREZ. WILL CONTINUE TO MONITOR THE PT. Addendum: 08/18/20 at 1937 by JESSIE MELENDREZ RN NOTED 45 CC OUTPUT FROM WATER SEAL CHEST TUBE.
[2020-08-18] MEDS: INSULIN REGULAR, HUMAN 100 UNIT/ML 3 ML VIAL SQ PRN (17:33)
--- NOTE | 2020-08-18 17:40 | NUR ---
BANKING SERVICES OFFICER NOTES COMBIVENT NOT ADMINISTRATED. PT INTUBATED. Addendum: 08/18/20 at 1741 by JESSIE MELENDREZ RN PT ON VENT ALREADY INTUBATED.
--- NOTE | 2020-08-18 19:35 | NUR ---
DRAWER IN [place] [employer]OM NOTES PT ON VENT AND DIPRIVAN, SEDATED NO SOB OR DISCOMFORT NOTED. ALL MEDS ADMINISTRATED. NO MAJOR CHANGES DURING SHIFT. ALL NEEDS ATTENDED. REPORT GIVEN TO RODRIGUE MORATAYA FOR NEGRO.
--- NOTE | 2020-08-18 19:46 | NUR ---
PT REC'D ORALLY INTUBATED VIA ETT 8.0 SECURED @ 24 CM LIP LINE ON [facility] VENT WITH THE SETTINGS OF AC 26, 500,100%,. SX DONE. NO RESPIRATORY DISTRESS NOTED AT THIS TIME. ALARMS ARE SET AND AUDIBLE. VENT PLUGGED INTO RED OUTLET. AMBU BAG@ BEDSIDE. WILL CONTINUE TO MONITOR T/O THE SHIFT.
[2020-08-19] VITALS (24 sets, daily range): BP systolic 101–147; BP diastolic 67–96
[2020-08-19] MEDS: PROPOFOL 100 ML IV PRN ×6 (04:27→21:33)
[2020-08-19 05:07] LABS: BASOPHILS # (AUTO) 0.1 /CMM (0.0-0.2); BASOPHILS % (AUTO) 0.5 % (0.0-2.0); HEMATOCRIT 36 % (39-51); HEMOGLOBIN 11.6 g/dL (13.5-17.5); LYMPHOCYTES # (AUTO) 0.9 /CMM (0.8-4.8); LYMPHOCYTES % (AUTO) 5.5 % (20.0-44.0); MEAN CORPUSCULAR HGB CONC 32 g/dl (31.0-36.0); MEAN CORPUSCULAR VOLUME 95 fL (80-96); MONOCYTES # (AUTO) 0.5 /CMM (0.1-1.30); MONOCYTES % (AUTO) 2.8 % (2.0-12.0); NEUTROPHILS # (AUTO) 14.8 /CMM (1.8-8.9); NEUTROPHILS % (AUTO) 89.2 % (43.0-81.0); PLATELET COUNT (AUTO) 253 /CMM (150-450); WHITE BLOOD COUNT (AUTO) 16.6 K/uL (4.3-11.0)
[2020-08-19] MEDS: CEFTRIAXONE 1 G in IV D5W 50 ML IV SCH (05:26)
[2020-08-19 05:36] LABS: ALBUMIN 1.7 g/dL (3.4-5.0); BILIRUBIN,TOTAL 0.3 mg/dL (0.2-1.0); CALCIUM, SERUM 8.3 mg/dL (8.5-10.1); CREATININE 0.9 mg/dL (0.6-1.3); MAGNESIUM 2.8 mg/dL (1.8-2.4); PHOSPHORUS 2.8 mg/dL (2.5-4.9); POTASSIUM 4.3 mmol/L (3.5-5.1); TOTAL PROTEIN, SERUM 6.7 g/dL (6.4-8.2)
[2020-08-19] MEDS: IPRATROPIUM/ALBUTEROL INHALER IH SCH ×4 (06:00→17:55)
[2020-08-19 06:03] LABS: C-REACTIVE PROTEIN 13.7 mg/dL (0.0-0.9)
--- NOTE | 2020-08-19 06:15 | NUR ---
ENVIRONMENTAL PERMITTING SPECIALIST: NO SIGNIFICANT NEGRO DURING THE SHIFT. FI02 DECREASED TO 90% AND TOLERATED WELL. CONTINUE DIPRIVAN DRIP AT 50MCG/KG/MIN FOR SEDATION. SR-ST ON WIRE SAW OPERATOR WT HR IN LOW 100s. WILL CONTINUE TO MONITOR.
[2020-08-19] MEDS ORDERED: GLUCERNA 1.2 1,000 ML BOTTLE NG PRN (08:00)
[2020-08-19] MEDS: BLOOD SUGAR DIAGNOSTIC 1 EACH STRIP IN SCH ×4 (08:01→23:44)
[2020-08-19] MEDS ORDERED: DEXTROSE 50%-WATER 50 ML DISP.SYRIN IV PRN (08:30)
[2020-08-19 09:25] LABS: ABG BASE EXCESS 0.3 mmol/L; ABG OXYGEN SATURATION 86.9 % (92.0-98.5); ABG PCO2 36.1 mmHg (35.0-45.0); ABG PH 7.442 (7.350-7.450); ABG PO2 50.1 mmHg (75.0-100.0); AaDO2 554.6 mmHg; COHb 1.1 % (0.5-1.5); MetHb 0.3 % (0.0-1.5); O2Hb 85.7 % (94.0-97.0); PEEP,BG 0 cm H2O; SITE, ABG Right Radial; VT, ABG 500 mL
[2020-08-19] MEDS: DEXAMETHASONE SOD PHOSPHATE 4 MG/ML VIAL IV SCH (09:28)
[2020-08-19] MEDS: PROSOURCE / PROSTAT (PYXIS) 30 ML UDC GT SCH ×2 (09:32→16:08)
[2020-08-19] MEDS: ENOXAPARIN SODIUM 40 MG/0.4 ML DISP.SYRIN SQ SCH ×2 (09:32→21:32)
[2020-08-19] MEDS: INSULIN REGULAR, HUMAN 100 UNIT/ML 3 ML VIAL SQ PRN ×3 (12:00→23:45)
--- NOTE | 2020-08-19 13:50 | NUR ---
RN NOTE 0715: Received patient with ETT to vent. Sedated with Diprivan @ 50mcg. On Isolation prec for Covid, maintained and observed. ST 120's on the monitor. With right side Chest tube intact, to water seal, no air leakage. With left NGT intact, clamped. Newberry cath intact, noted with good yellow UOP. 0900: S/E by Dr. Avilez, aware for the ABG result, with order to place Vt [address] back FIO2 from 90% to 100% and ABG in am. 0930: Carried out rec to start Glucerna 1.2 @ 15, and added Prostat BID. S/E by Kenn CORBETT, continue MILK WAGON DRIVER restraints on for safety. 1330: Noted with increased WOB at times and HR 120, titrated Diprivan as ordered, please see IV spreadsheet. Started on TF, kept HOB elevated, will monitor if tolerated.
--- NOTE | 2020-08-19 20:16 | NUR ---
icu/machine etcher Received report from day nurse, see flowsheet for assessment and see iv spread sheet for iv's. skin issues are addressed on assessment. Pt turned and repositioned for comfort and care
[2020-08-20] VITALS (47 sets, daily range): BP systolic 81–137; BP diastolic 43–82
[2020-08-20] MEDS: PROPOFOL 100 ML IV PRN ×6 (01:03→22:27)
--- NOTE | 2020-08-20 04:27 | NUR ---
ICU/PETROGRAPHY TEACHER RIGHT SIDE PNEUMOTHORAX WAS CALLED A CRITICAL VALUE FROM RADIOLOGIST. SAID TO CHANGE THE FUCTION OF THE CHEST TUBE FROM H2O SEAL TO WALL SUCTION. TRAILERS AND MOTOR HOMES SALESPERSON DR WESLEY SAID THAT TO DO THIS. IT WAS BY CHARGE NURSE, WHO THEN SAID IT'S BUBBLING AND 20CM TO SUCTION. WILL CONTINUE TO MONITOR THIS PT. Addendum: 08/20/20 at 0445 by JAVED STATON LVN ALSO CRITICAL LAB VALUE SAID THERE IS A SMALL LEFT SIDE PNEUMOTHORAX. NO NEW ORDERS FOR THIS.
[2020-08-20 04:37] LABS: BASOPHILS # (AUTO) 0.1 /CMM (0.0-0.2); BASOPHILS % (AUTO) 0.3 % (0.0-2.0); EOSINOPHILS % (AUTO) 0.4 % (0.0-6.0); HEMATOCRIT 35 % (39-51); HEMOGLOBIN 11.2 g/dL (13.5-17.5); LYMPHOCYTES # (AUTO) 1.2 /CMM (0.8-4.8); LYMPHOCYTES % (AUTO) 5.9 % (20.0-44.0); MEAN CORPUSCULAR HGB CONC 32 g/dl (31.0-36.0); MEAN CORPUSCULAR VOLUME 96 fL (80-96); MONOCYTES # (AUTO) 0.6 /CMM (0.1-1.30); MONOCYTES % (AUTO) 2.9 % (2.0-12.0); NEUTROPHILS # (AUTO) 17.9 /CMM (1.8-8.9); NEUTROPHILS % (AUTO) 90.5 % (43.0-81.0); PLATELET COUNT (AUTO) 262 /CMM (150-450); RED BLOOD CELL COUNT(AUTO) 3.66 MIL/uL (4.5-6.0); WHITE BLOOD COUNT (AUTO) 19.8 K/uL (4.3-11.0)
[2020-08-20 04:45] LABS: CALCIUM, SERUM 8.2 mg/dL (8.5-10.1); CREATININE 0.9 mg/dL (0.6-1.3); MAGNESIUM 3.1 mg/dL (1.8-2.4); PHOSPHORUS 4.4 mg/dL (2.5-4.9); POTASSIUM 5.4 mmol/L (3.5-5.1)
[2020-08-20] MEDS: CEFTRIAXONE 1 G in IV D5W 50 ML IV SCH (05:35)
[2020-08-20] MEDS: BLOOD SUGAR DIAGNOSTIC 1 EACH STRIP IN SCH ×4 (05:45→23:48)
[2020-08-20] MEDS: INSULIN REGULAR, HUMAN 100 UNIT/ML 3 ML VIAL SQ PRN ×4 (05:47→23:48)
[2020-08-20 07:01] LABS: ABG BASE EXCESS -4.2 mmol/L; ABG OXYGEN SATURATION 87.6 % (92.0-98.5); ABG PCO2 49.1 mmHg (35.0-45.0); ABG PH 7.282 (7.350-7.450); ABG PO2 58.3 mmHg (75.0-100.0); AaDO2 605.6 mmHg; COHb 0.3 % (0.5-1.5); MetHb 0.3 % (0.0-1.5); O2Hb 87.1 % (94.0-97.0); PEEP,BG 0 cm H2O; SITE, ABG Right Radial; VT, ABG 450 mL
--- NOTE | 2020-08-20 07:25 | NUR ---
PT SEDATED ON ORDERED PROPOFOL. NOT FIGHTING VENT AND TOLERATING THE ORDERED VENT SETTINGS WELL WITH SAO2 >90%. TACHYPNEIC AND SHALLOW BREATHING NOTED. HOB ELEVATED. ST 100-110S ON TELE MONITOR. TODD INTACT DRAINING YELLOW CLEAR URINE. NGT INTACT. SECURED. AUSCULTATED AND NO RESIDUAL. GT FEEDING RUNNING ORDERED 15ML/HR. JESE MIDLINE FLUSHED INTACT DRESSING INTACT. LFA FLUSHED INTACT, DRESSING INTACT. WILL IMPLEMENT ORDERS AND MONITOR RESP STATUS AND RESPONSE TO TREATMENTS. WILL REPORT TO MD NEEDED. WILL TURN Q2H AND ELEVATED EXTREMITIES.
[2020-08-20] MEDS: PROSOURCE / PROSTAT (PYXIS) 30 ML UDC GT SCH ×2 (08:43→17:40)
[2020-08-20] MEDS: DEXAMETHASONE SOD PHOSPHATE 4 MG/ML VIAL IV SCH (08:44)
[2020-08-20] MEDS: ENOXAPARIN SODIUM 40 MG/0.4 ML DISP.SYRIN SQ SCH ×2 (08:45→20:25)
[2020-08-20] MEDS ORDERED: FENTANYL CITRAT IV 2,500 MCG in IV NS 0.9% 250 ML IV PRN (09:30)
[2020-08-20] MEDS ORDERED: FENTANYL CITRATE IV 1,250 MCG in IV NS 0.9% 225 ML IV PRN (09:30)
[2020-08-20] MEDS: IPRATROPIUM/ALBUTEROL INHALER IH SCH ×3 (12:00→23:49)
[2020-08-20] MEDS ORDERED: MORPHINE SULFATE INJ 2 MG/ML DISP.SYRIN IV PRN (12:00)
[2020-08-20] MEDS ORDERED: PHENYLEPHRINE 50 MG in IV NS 0.9% 245 ML IV PRN (12:00)
[2020-08-20] MEDS ORDERED: ROCURONIUM BROMIDE 50 MG/5 ML IV ONE (12:30)
--- NOTE | 2020-08-20 13:30 | NUR ---
PER DR HARRISON NEW CHEST TUBE INSERTED IN R. CHEST. SECURED WITH CHEST TUBE TAPE. INTACT. SECURED TO WATER SEAL WITH SUCTION. WATER BUBBLING INTERMITTENTLY. ATTACHED TO WALL SUCTION. TUBING PATENT. WILL MONITOR DRAINAGE THROUGHOUT THE SHIFT. PREVIOUS CHEST TUBE REMOVED PER DR HARRISON. NO SIGNS OF BLEEDING NOTED OR WORSENING SOB OR RESPIRATORY DISTRESS NOTED. WILL CONTINUE TO MONITOR AND REPORT NEEDED.
[2020-08-20] MEDS: NOREPINEPHRINE 8 MG in IV NS 0.9% 242 ML IV PRN (15:18)
--- NOTE | 2020-08-20 18:23 | NUR ---
PT SEDATED. RESPIRATIONS EVEN UNLABORED AND SAO2 >90%. TOLERATING VENT SETTINGS ORDERED. ST 100S-110S. TODD INTACT DRAINING YELLOW DARK URINE. NGT INTACT. NO RESIDUAL. FLUSHED AND AUSCULTATED FOR PLACEMENT. JESE MIDLINE AND LFA INTACT, FLUSHED. DRESSING DRY INTACT. RUNNING PROPOFOL AND LEVOPHED ORDERED AND PT TOLERATING WELL WITH VS WNL AND CONTROLLED WITHIN ORDERED PARAMETERS. R CHEST WALL CHEST TUBE ATTACHED TO WATER SEAL AND SUCTION. ALL WORKING AND TUBING ALL CONNECTED AND PATENT. BUBBLING NOTED INTERMITTENTLY AND NO AIR LEAK. CT DRAINAGE SECURED. NO DRAINAGE NOTED IN CHEST TUBE. ALL ORDERS IMPLEMENTED SUCCESSFULLY AND PT TOLERATING WELL. REPORTED TO MD NEEDED. TURNED Q2H AND ELEVATED EXTREMITIES. BED LOW, LOCKED, RAILS UP X2, HOB ELEVATED 30 DEGREES, ALL LINES AND LEADS INTACT AND WORKING. ALL SAFETY PRECAUTIONS IMPLEMENTED. WILL ENDORSE TO PM RN.
--- NOTE | 2020-08-20 19:30 | NUR ---
RN NOTES RECEIVED PATIENT IN BED INTUBATED NO S/S OF ACUTE DISTRESS NOTED. VENT SETTING TOLERATING WELL ORDERED. CONTINUES ON DIPRIVAN AND LEVO TOLERATING WELL. VITAL SIGNS WNL. TELE MONITOR READING ST HR IN 115. RT CHEST TUBE IN PLACE NO DRAINAGE NOTED. IV SITES INTACT PATENT FLUSHES WELL NO INFILTRATION NOTED. BILATERAL SOFT WRIST RESTRAINS IN PLACE RELEASED TO CHECK FOR SKIN BREAKDOWN AND CIRCULATION, F/C INTACT YELLOW URINE VIA GRAVITY. ALL SAFETY MEASURES IN PLACE, CALL LIGHT WITHIN REACH. WILL CONT TO MONITOR FOR NEGRO.
[2020-08-21] VITALS (88 sets, daily range): BP systolic 93–156; BP diastolic 47–87
[2020-08-21] MEDS: PROPOFOL 100 ML IV PRN ×4 (04:36→20:28)
[2020-08-21] MEDS: NOREPINEPHRINE 8 MG in IV NS 0.9% 242 ML IV PRN ×2 (05:01→22:42)
[2020-08-21 05:04] LABS: BASOPHILS # (AUTO) 0.3 /CMM (0.0-0.2); BASOPHILS % (AUTO) 1.1 % (0.0-2.0); EOSINOPHILS % (AUTO) 0.1 % (0.0-6.0); HEMATOCRIT 30 % (39-51); HEMOGLOBIN 9.5 g/dL (13.5-17.5); LYMPHOCYTES # (AUTO) 1.8 /CMM (0.8-4.8); LYMPHOCYTES % (AUTO) 6.5 % (20.0-44.0); MEAN CORPUSCULAR HGB CONC 32 g/dl (31.0-36.0); MEAN CORPUSCULAR VOLUME 95 fL (80-96); MONOCYTES # (AUTO) 1.1 /CMM (0.1-1.30); NEUTROPHILS % (AUTO) 88.3 % (43.0-81.0); PLATELET COUNT (AUTO) 293 /CMM (150-450); RED BLOOD CELL COUNT(AUTO) 3.11 MIL/uL (4.5-6.0); WHITE BLOOD COUNT (AUTO) 27.2 K/uL (4.3-11.0)
[2020-08-21 05:28] LABS: CREATININE 3.4 mg/dL (0.6-1.3); MAGNESIUM 3.5 mg/dL (1.8-2.4); PHOSPHORUS 6.9 mg/dL (2.5-4.9); POTASSIUM 5.9 mmol/L (3.5-5.1)
--- NOTE | 2020-08-21 05:47 | NUR ---
RT NOTE Pt rec'd orally intubated via ETT 8.0 secured @ 24cm at the lipline. Pt on [facility] vent on AC mode settings as charted. Pt sx'd for thick SMALL amt of WHITE FROTHY secretions. Alarms are set and audible. Ambu bag bedside. Vent plugged into red outlet. Will continue to monitor closely. Addendum: 08/21/20 at 0547 by RUSS NUGENT RT Amended: Links added.
[2020-08-21] MEDS: IPRATROPIUM/ALBUTEROL INHALER IH SCH ×3 (06:00→18:00)
[2020-08-21] MEDS: CEFTRIAXONE 1 G in IV D5W 50 ML IV SCH (06:10)
[2020-08-21] MEDS: BLOOD SUGAR DIAGNOSTIC 1 EACH STRIP IN SCH ×3 (06:10→18:09)
[2020-08-21] MEDS: INSULIN REGULAR, HUMAN 100 UNIT/ML 3 ML VIAL SQ PRN ×3 (06:27→18:08)
[2020-08-21 06:32] LABS: ABG BASE EXCESS -6.6 mmol/L; ABG OXYGEN SATURATION 96.5 % (92.0-98.5); ABG PCO2 48.6 mmHg (35.0-45.0); ABG PH 7.245 (7.350-7.450); ABG PO2 93.6 mmHg (75.0-100.0); AaDO2 570.8 mmHg; COHb 0.3 % (0.5-1.5); MetHb 0.1 % (0.0-1.5); O2Hb 96.1 % (94.0-97.0); SITE, ABG Right Radial; VENT MODE, BG AC 26 450 100% +8
--- NOTE | 2020-08-21 07:42 | NUR ---
RN NOTES NO ACUTE CHANGES NOTED, PATIENT CONTINUES ON VENT, SETTING TOLERATING ORDERED. CONTINUES ON DIPRIVAN AND LEVO TOLERATING WELL. VITAL SIGNS REMAINED STABLE. NO SOB NO DISTRESS NOTED. SR/ST ON TELE MONITOR. IV SITES INTACT PATENT FLUSHES WELL NO INFILTRATION NOTED. BUN 171 PT IS ON Q6H 250 FREE WATER FLUSH. F/C INTACT DARNING WELL VIA GRAVITY. CHEST TUBE IN PLACE. ALL SAFETY MEASURES IN PLACE, CALL LIGHT WITHIN REACH. BED IN LOW AND LOCKED POSITION. ENDORSE TO AM NURSE FOR NEGRO.
[2020-08-21] MEDS: DEXAMETHASONE SOD PHOSPHATE 4 MG/ML VIAL IV SCH (08:29)
[2020-08-21] MEDS: PROSOURCE / PROSTAT (PYXIS) 30 ML UDC GT SCH ×2 (08:29→17:30)
[2020-08-21] MEDS: ENOXAPARIN SODIUM 40 MG/0.4 ML DISP.SYRIN SQ SCH (09:51)
[2020-08-21] MEDS ORDERED: SODIUM POLYSTYRENE SULFONATE 15 G/60 ML BOTTLE PO ONE (12:30)
[2020-08-21] MEDS ORDERED: BUMETANIDE INJ 4 MG in IV D5W 24 ML IV ONE (13:00)
[2020-08-21] MEDS ORDERED: VANCOMYCIN 1 GM in IV D5W 250 ML IV SCH (14:00)
[2020-08-21 15:25] LABS: CALCIUM, SERUM 8.5 mg/dL (8.5-10.1); CREATININE 3.5 mg/dL (0.6-1.3); POTASSIUM 5.9 mmol/L (3.5-5.1)
[2020-08-21] MEDS: CEFEPIME 2 GM in IV D5W 100 ML IV SCH (15:55)
[2020-08-21] MEDS: Sodium Bicarbonate 150 MEQ in IV D5W 1,000 ML IV PRN (17:51)
--- NOTE | 2020-08-21 19:30 | NUR ---
RN NOTES RECEIVED PATIENT IN BED INTUBATED,CONTINUES ON DIPRIVAN AND LEVO TOLERATING WELL. VITAL SIGNS WNL. NO S/S OF ACUTE DISTRESS NOTED. VENT SETTING TOLERATING WELL ORDERED. TELE MONITOR READING ST HR IN 105. RT CHEST TUBE IN PLACE NO DRAINAGE NOTED. IV SITES INTACT PATENT FLUSHES WELL NO INFILTRATION NOTED. BILATERAL SOFT WRIST RESTRAINS IN PLACE RELEASED TO CHECK FOR SKIN BREAKDOWN AND CIRCULATION, F/C INTACT YELLOW URINE VIA GRAVITY. ALL SAFETY MEASURES IN PLACE, CALL LIGHT WITHIN REACH. WILL CONT TO MONITOR FOR NEGRO.
[2020-08-22] VITALS (58 sets, daily range): BP systolic 43–137; BP diastolic 14–75
[2020-08-22] MEDS: BLOOD SUGAR DIAGNOSTIC 1 EACH STRIP IN SCH ×4 (00:39→17:38)
[2020-08-22] MEDS: INSULIN REGULAR, HUMAN 100 UNIT/ML 3 ML VIAL SQ PRN ×4 (00:40→17:39)
[2020-08-22] MEDS: PROPOFOL 100 ML IV PRN ×4 (01:08→14:57)
--- NOTE | 2020-08-22 02:00 | NUR ---
PATIENT REMAINED ON SAME VENT SETTING TOLERATING WELL.
[2020-08-22 04:53] LABS: BASOPHILS # (AUTO) 0.1 /CMM (0.0-0.2); BASOPHILS % (AUTO) 0.4 % (0.0-2.0); EOSINOPHILS % (AUTO) 0.1 % (0.0-6.0); HEMATOCRIT 26 % (39-51); HEMOGLOBIN 8.4 g/dL (13.5-17.5); LYMPHOCYTES # (AUTO) 1.8 /CMM (0.8-4.8); LYMPHOCYTES % (AUTO) 4.8 % (20.0-44.0); MEAN CORPUSCULAR HGB CONC 32 g/dl (31.0-36.0); MEAN CORPUSCULAR VOLUME 95 fL (80-96); MONOCYTES # (AUTO) 1.3 /CMM (0.1-1.30); MONOCYTES % (AUTO) 3.6 % (2.0-12.0); NEUTROPHILS % (AUTO) 91.1 % (43.0-81.0); PLATELET COUNT (AUTO) 275 /CMM (150-450); RED BLOOD CELL COUNT(AUTO) 2.78 MIL/uL (4.5-6.0)
[2020-08-22 04:59] LABS: WHITE BLOOD COUNT (AUTO) 37.3 K/uL (4.3-11.0)
[2020-08-22 05:01] LABS: CALCIUM, SERUM 8.1 mg/dL (8.5-10.1); CREATININE 3.4 mg/dL (0.6-1.3); MAGNESIUM 3.7 mg/dL (1.8-2.4); POTASSIUM 5.7 mmol/L (3.5-5.1)
[2020-08-22 05:27] LABS: LYMPHOCYTES % (MANUAL) 4 % (16-48); MONOCYTES % (MANUAL) 7 % (0-11.0); NEUTROPHILS % (MANUAL) 89 (42-76)
--- NOTE | 2020-08-22 05:30 | NUR ---
RECEIVED CALL FROM [facility], DR. SOSA REPORTED THAT RT SIDE PNEUMOTHORAX IS LARGER THAN YESTERDAY. AND BUN 19, PHOSPHORS 8, NOTIFIED MD MUÑOZ WAITING FOR CALL BACK. Addendum: 08/22/20 at 0719 by RL TRAN RN AND WBC-37.3.
[2020-08-22] MEDS: IPRATROPIUM/ALBUTEROL INHALER IH SCH ×3 (06:00→12:00)
--- NOTE | 2020-08-22 07:35 | NUR ---
RN NOTES NO ACUTE CHANGES NOTED, PATIENT CONTINUES ON VENT, SETTING TOLERATING ORDERED. CONTINUES ON DIPRIVAN AND LEVO TOLERATING WELL. VITAL SIGNS REMAINED STABLE. NO SOB NO DISTRESS NOTED. SR/ST ON TELE MONITOR. IV SITES INTACT PATENT FLUSHES WELL NO INFILTRATION NOTED. F/C INTACT DARNING WELL VIA GRAVITY. CHEST TUBE IN PLACE. ALL SAFETY MEASURES IN PLACE, CALL LIGHT WITHIN REACH. BED IN LOW AND LOCKED POSITION. ENDORSE TO AM NURSE FOR NEGRO.
[2020-08-22 07:58] LABS: ABG BASE EXCESS -3.8 mmol/L; ABG OXYGEN SATURATION 88.2 % (92.0-98.5); ABG PCO2 50.7 mmHg (35.0-45.0); ABG PH 7.274 (7.350-7.450); ABG PO2 59.2 mmHg (75.0-100.0); AaDO2 603.1 mmHg; MetHb 0.1 % (0.0-1.5); O2Hb 88.1 % (94.0-97.0); SITE, ABG Right Brachial; VENT MODE, BG AC 28 450 +5 100%
[2020-08-22] MEDS: DEXAMETHASONE SOD PHOSPHATE 4 MG/ML VIAL IV SCH (08:37)
[2020-08-22] MEDS: HEPARIN SODIUM, PORCINE 5000 UNITS/1 ML VIAL SQ SCH ×2 (08:39→16:51)
[2020-08-22] MEDS: PROSOURCE / PROSTAT (PYXIS) 30 ML UDC GT SCH ×2 (08:44→16:49)
--- NOTE | 2020-08-22 09:00 | NUR ---
RN NOTES SEEN BY DR SALDANA. PT REMAINS INTUBATED, ON VENT. AWARE OF CXR RESULT. RIGHT PNEUMOTHORAX LARGER COMPARED FROM LAST RESULT. RIGHT CHEST TUBE IN, BUBBLING NOTED. NO ORDER MADE
[2020-08-22] MEDS: Sodium Bicarbonate 150 MEQ in IV D5W 1,000 ML IV PRN (09:27)
[2020-08-22] MEDS ORDERED: GLUCERNA 1.2 1,000 ML BOTTLE NG PRN (15:00)
[2020-08-22] MEDS: CEFEPIME 2 GM in IV D5W 100 ML IV SCH (16:35)
[2020-08-22] MEDS: NOREPINEPHRINE 8 MG in IV NS 0.9% 242 ML IV PRN (18:44)
--- NOTE | 2020-08-22 19:10 | NUR ---
RN NOTES CODE BLUE CALLED FROM 1846 TO 1911. PLS SEE CODE BLUE NOTES CODE BLUE CODE FROM 1913 TP 1906. PLEASE SEE CODE BLUE NOTES
[2020-08-22] MEDS ORDERED: EPINEPHRINE (1:1000) 5 MG in IV NS 0.9% 245 ML IV PRN (19:30)
--- NOTE | 2020-08-22 19:30 | NUR ---
RN NOTES CODE BLUE CALLED FROM 1930 TO 1942. PLS SEE CODE BLUE NOTES.
--- NOTE | 2020-08-22 19:36 | NUR ---
NEW ORDER RECEIVED FROM DR. HARRISON FOR STAT CMP, MAG,PHOS, ORDER NOTED AND CARRIED OUT. MOTION PICTURE CRITIC NOTIFIED.
--- NOTE | 2020-08-22 19:43 | NUR ---
RN NOTES PATIENT AT 194 PRONOUNCED BY ALLYN MORATAYA. ASYSTOLE, NO B/P, NO AUDIBLE HEART TONES PULSES ABSENT, PUPILS ARE FIXED AND DILATED , NO GAG OR CORNEA REFLEXES NOTED. VENTILATOR TURNED OFF, DR. HRARISON NOTIFIED, NURSING INFANTRY ASSAULTMAN AWARE ADMITTING AWARE.
[2020-08-22 19:46] LABS: ABG BASE EXCESS -6.7 mmol/L; ABG OXYGEN SATURATION 28.1 % (92.0-98.5); ABG PCO2 137.3 mmHg (35.0-45.0); ABG PO2 31.4 mmHg (75.0-100.0); COHb 0.3 % (0.5-1.5); MetHb 0.8 % (0.0-1.5); O2Hb 27.8 % (94.0-97.0); SITE, ABG Other; VENT MODE, BG AC 26 450 100% +5
[2020-08-22] MEDS ORDERED: EPINEPHRINE (1:10,000) SYRINGE 1 MG/10 ML DISP.SYRIN IVP ONE (19:51)
[2020-08-22] MEDS ORDERED: CALCIUM CHLORIDE 1,000 MG/10 ML DISP.SYRIN IV ONE (19:51)
[2020-08-22] MEDS ORDERED: SODIUM BICARBONATE SYR 50 MEQ/50 ML DISP.SYRIN IV ONE (19:51)
--- NOTE | 2020-08-22 20:30 | NUR ---
RN NOTES DOUBLE BAGGED THE PT PER INFECTION CONTROL PROTOCOL, BELONGING LIST CHECKED,TAGS AND LABELED APPLIED TO PT. NOTIFIED NEXT OF KIN BROTHER GRICELDA NO MORTUARY AT THIS THIS TIME CONSENT GIVEN TO RELEASE BODY TO MORTUARY. TRANSFER BODY TO [facility] WITH 2 SECURITY PERSONNEL.
--- NOTE | 2020-08-28 14:12 | NUR ---
SW was contacted by Nursing Human Resources Associate Cynthia regarding this patient's DPOA. Nursing Human Resources Associate informed this SW regarding two parties claiming DPOA. Nursing Human Resources Associate Cynthia informed this SW that there is a Living Will and Advanced Care Directive. SW to investigate and consult with Job Foreman Serina Yepez in regards to next steps. SW remains available for all needs regarding this patient.
--- NOTE | 2020-08-28 14:16 | NUR ---
ÁNGEL attempted to speak with Kit Love regarding DPOA. ÁNGEL unable to speak with Kit. SW left voicemail with this SW contact information.
--- NOTE | 2020-08-28 14:17 | NUR ---
SW confirmed with Nursing Supervisor [facility] Cynthia regarding contact information for Kit Love . Nursing Supervisor Ste[facility] directed this SW to speak with Roseline Glory of Kit Love. Plan: SW to follow-up with Roseline for a contact number for Kitpiter Love.
--- NOTE | 2020-08-28 14:19 | NUR ---
ÁNGEL spoke with Roseline (Armenian speaking) to confirm a number for Kit Love. Roseline provided this SW with the following contact information . SW unable to speak with Kit, ÁNGEL left a voicemail in Armenian and in [place] with this SW contact information. Plan: ÁNGEL will attempt again to speak with Kit .
--- NOTE | 2020-08-28 14:38 | NUR ---
This SW after consulting with High Energy Forming Equipment Operator Serina Yepze confirmed with this SW to inform Nursing Government Auditor Cynthia to release information to green party who provided Living Will and Advanced Care Directive. This SW informed Nursing Government Auditor Cynthia of this information. SW remains available for all needs regarding this patient.
== END 2020-08-22 19:43 | disposition expired | DRG 870 ==
LOC: ER 01:51 → TRANSITION 09:38 → TELE1 20:33 → ICU 08-14 12:36
PROVIDERS: ADMIT Family Medicine; ATTEND Nurse Practitioner Acute Care
PROC: XW033E5 Introduction of Remdesivir Anti-infective into Peripheral Vein, Percutaneous Approach, New Technology Group 5 (ICD-10-PCS; principal; 2020-08-12)
PROC: XW13325 Transfusion of Convalescent Plasma (Nonautologous) into Peripheral Vein, Percutaneous Approach, New Technology Group 5 (ICD-10-PCS; 2020-08-14)
PROC: 05HA33Z Insertion of Infusion Device into Left Brachial Vein, Percutaneous Approach (ICD-10-PCS; 2020-08-16)
PROC: 5A1955Z Respiratory Ventilation, Greater than 96 Consecutive Hours (ICD-10-PCS; 2020-08-17)
PROC: 0BH18EZ Insertion of Endotracheal Airway into Trachea, Via Natural or Artificial Opening Endoscopic (ICD-10-PCS; 2020-08-17)
PROC: 0W9930Z Drainage of Right Pleural Cavity with Drainage Device, Percutaneous Approach (ICD-10-PCS; 2020-08-17)
PROC: 0W9930Z Drainage of Right Pleural Cavity with Drainage Device, Percutaneous Approach (ICD-10-PCS; 2020-08-20)
PROC: 05HM33Z Insertion of Infusion Device into Right Internal Jugular Vein, Percutaneous Approach (ICD-10-PCS; 2020-08-22)
PROC: B543ZZA Ultrasonography of Right Jugular Veins, Guidance (ICD-10-PCS; 2020-08-22)
DX: A41.89 Other specified sepsis (principal); E43 Unspecified severe protein-calorie malnutrition; J12.89 Other viral pneumonia; U07.1 COVID-19; J96.01 Acute respiratory failure with hypoxia; N17.0 Acute kidney failure with tubular necrosis; I26.99 Other pulmonary embolism without acute cor pulmonale; J96.02 Acute respiratory failure with hypercapnia; J15.9 Unspecified bacterial pneumonia; E87.1 Hypo-osmolality and hyponatremia; D68.59 Other primary thrombophilia; E87.0 Hyperosmolality and hypernatremia; J93.82 Other air leak; J93.83 Other pneumothorax; T79.7XXA Traumatic subcutaneous emphysema, initial encounter; I12.9 Hypertensive chronic kidney disease with stage 1 through stage 4 chronic kidney disease, or unspecified chronic kidney disease; N18.9 Chronic kidney disease, unspecified; E11.22 Type 2 diabetes mellitus with diabetic chronic kidney disease; E11.9 Type 2 diabetes mellitus without complications; R65.20 Severe sepsis without septic shock; D63.8 Anemia in other chronic diseases classified elsewhere; E86.1 Hypovolemia; I70.0 Atherosclerosis of aorta; J45.909 Unspecified asthma, uncomplicated; X58.XXXA Exposure to other specified factors, initial encounter; Y92.230 Patient room in hospital as the place of occurrence of the external cause
CPT/HCPCS: 31720; 36410; 36415; 36600; 71045-TC; 80048-TC; 80053-TC; 80061-TC; 80076-TC; 81001; 82272-TC; 82550-TC; 82728-TC; 82803-TC; 82962-TC; 83605-TC; 83615-TC; 83735-TC; 83880; 84100-TC; 84443-TC; 84484-TC; 85025-TC; 85378-TC; 85610-TC; 85730-TC; 86140-TC; 86706; 86803; 86850-TC; 87040-TC; 87070-TC; 87081-TC; 87086-TC; 87340; 92950-TC; 93307-TC; 94003-TC; 94640-TC; 94799-TC; A4216; A6253; A6403; C1751; C9803; G0378; J0171; J0456; J0692; J0696; J1100; J1644; J1650; J1815; J2270; J2370; J2405; J2704; J3010; J3370; J3490; J7030; J7040; J7050; J7060; J7070; P9017-BL; U0003